=== PATIENT | female | born 1995 ===

== ENCOUNTER 2023-08-07 07:20 | Inpatient (IN) | payer MEDICAID ==
[~2023-08-07] VITALS: Ht 167.6 cm; Wt 149.1 kg
[2023-08-08] VITALS (18 sets, daily range): BP systolic 78–137; BP diastolic 31–71; PULSE 82–109; TEMP 98.1–98.8
--- NOTE | 2023-08-08 05:48 | NUR ---
Ambulatory to unit for scheduled C/S accompanied by Mother and daughter. Oriented to room and plan of care.
[2023-08-08 06:33] LABS: BASO % 0.4 % (0.0-2.0); EOS % 0.4 % (0.0-4.0); GRAN % 70.7 % (42.2-75.2); HEMOGLOBIN 12.8 g/dl (12.5-16.0); LYMPH # 2.3 K/mm3 (1.2-3.4); LYMPH % 23.2 % (20.0-51.0); MEAN CELL VOLUME 87 fl (80.0-100.0); MEAN CORPUSCULAR HEMOGLOBIN 30 pg (27-31); MEAN CORPUSCULAR HGB CONC 35 g/dl (33.0-37.0); MONO # 0.5 K/mm3 (0.1-0.6); MONO % 5.1 % (1.7-9.3); PLATELET COUNT 215 K/mm3 (130-400); RED BLOOD COUNT 4.22 M/mm3 (4.10-5.30); REDCELL DISTRIBUTION WIDTH-CV 13.3 % (11.5-14.5)
[2023-08-08 06:34] LABS: HEMATOCRIT 36.9 % (37.0-47.0)
[2023-08-08] MEDS ORDERED: ZOLOFT 50MG50 MG PO (06:45)
[2023-08-08] MEDS ORDERED: LEVOXYL0.1 MG PO (06:45)
[2023-08-08] MEDS ORDERED: PRENATAL (06:46)
[2023-08-08 08:48] LABS: TRICYCLIC ANTIDEPRESS URINE NEGATIVE (NEGATIVE)
--- NOTE | 2023-08-08 16:45 | NUR ---
Pt up to the bathroom with standby assist and without complications. Eden removed. Eva-care done. Pt ambulated back to the bed without complications. Abdominal binder placed. Plan of care reviewed. Call light within reach.
[2023-08-08] MEDS ORDERED: PERCOCET 325 MG1 TA2 PO (21:34)
[2023-08-08] MEDS ORDERED: MOTRIN 800800 MG/TAB PO (21:34)
[2023-08-09 00:30] VITALS: BP 132/56; PULSE 77; TEMP 97.9
[2023-08-09 08:30] VITALS: BP 129/59; PULSE 88; TEMP 97.9
--- NOTE | 2023-08-09 09:21 | NUR ---
Initial visit; Patient thanked Bulk Folder for offering congratulations and God's blessings for the of her son. Bulk Folder thanked Shonna for choosing [facility] and wished her well.
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
[2023-08-09 17:15] VITALS: BP 117/51; PULSE 76; TEMP 97.9
[2023-08-09 20:00] VITALS: BP 148/73; PULSE 76; TEMP 98.1
--- NOTE | 2023-08-09 21:20 | NUR ---
2022 PT UP TO SHOWER. THIS RN TO ROOM AROUND 2100 TO ASSESS PT'S INCISION. DRESS APPEARED SATURATED AND MOIST. AQUASEAL DRESSING PULLED BACK AND REMOVED BY THIS RN. ABDOMINAL INCISION APPEARED SLIGHTLY MOIST, BUT INTACT. INCISION DABBED WITH GAUZE TO DRY SITE. MORE CLEAN GAUZE PLACED OVER INCISION. PT HELD UP PANIS DURING GAUZE PLACEMENT. EDUCATED PROVIDED TO PT ABOUT KEEPING INCISION DRY AND INFECTION PREVENTION. CLEAN, DRY GAUZE REMAIN OVER INCISION AND PT THEN PLACED PANIS BACK DOWN. ABDOMINAL BINDER PLACED ON PT BY THIS RN WITH ASSISTANCE FROM [address]ND RN[address] DR. CHILDERS NOTIFIED THAT AQUASEAL DRESSING WAS REMOVED BY THIS RN AND THAT THE DRESSING WAS SATURATED. DR. CHILDERS GAVE THE FOLLOWING VERBAL PHONE READBACK ORDERS: 1. PLACE GAUZE OVER INCISION SITE. AQUALSEAL DRESSING DOES NOT NEED TO BE REPLACED AT THIS TIME. CLEAN GAUZE REMAIN IN PLACE WITH BINDER ON.
--- NOTE | 2023-08-10 01:45 | NUR ---
THIS RN TO RE-ASSESS INCISION SITE. MODERATE SPOT OF RED BLOOD NOTED TO ABDOMINAL BINDER. PT LIFTED ABDOMINAL PANIS. THE GAUZE OVER THE INCISION SITE WERE MODERATELY SATURATED WITH BLOOD. BLOODY GAUZE REMOVED AND INCISION SITE ASSESSED. INICISON APPEARS INTACT AND DOES NOT APPEAR TO BE ACTIVELY BLEEDING. NO SWELLING OR DRAINAGE NOTED. NEW GAUZE RE-APPLIED TO SITE. ABDOMINAL BINDER REMAINS ON AT THIS TIME.
--- NOTE | 2023-08-10 04:40 | NUR ---
DR. CHILDERS NOTIFIED OF PATIENT'S MODERATELY BLOODY GAUZE OVER C/S INCISION. INCISION REMAINS C/D/I. NO OPENINGS OR DRAINAGE NOTED. GAUZE AT 0400, WERE MILDLY SATURATED TOWARDS THE MIDDLE OF THE INCISION. DR. CHILDERS GAVE A VERBAL PHONE READBACK ORDER TO CONTINUE TO RE-DRESS THE INCISION WITH DRY GAUZE AT THIS TIME AND TO HAVE DR. DOAN ASSESS THE INCISION SITE TODAY. CLEAN, DRY GAUZE RE-APPLIED TO SITE AT 0430 AND NEW BINDER APPLIED TO PATIENT.
--- NOTE | 2023-08-10 06:25 | NUR ---
PT RESTING IN BED, C/O BURNING AROUND INCISION SITE AFTER TOWEL REMOVE EARLIER. PT ASSISTS IN LIFTING PANNUS, BOTTOM OF BINDER WITH BLOODY DRAINAGE, AND GAUZE OVER INCISION SATURATED WITH BLOOD-TINGED FLUID. INCISION IS INTACT WITIH EDGES WELL APPROXIMATED. NO ACTIVE DRAINAGE NOTED. NEW GAUZE PLACED WITH TOWEL OVERTOP AND BINDER REPOSITIONED IS PER PT'S REQUEST NOT TO CHANGE AT THIS TIME.
[2023-08-10 08:33] VITALS: BP 117/64; PULSE 83; TEMP 98.3
--- NOTE | 2023-08-10 12:00 | NUR ---
TOWEL OVER INCISION CAUSING DISCOMFORT D/T POSITIONING AND HAS BLOODY DRAINAGE, REMOVED. CLEAN TOWEL PLACED OVER INCISION AND BINDER REPOSITIONED. PT REPORTS FEELING MORE COMFORTABLE NOW.
[2023-08-10 16:08] VITALS: BP 129/65; PULSE 73; TEMP 98.1
--- NOTE | 2023-08-10 17:30 | NUR ---
TOWEL OVER INCISION REMOVED AND REPLACED. SMALL LEMON SIZE SPOT OF BLOOD-TINGED FLUID ON PREVIOUS TOWEL.
[2023-08-10 20:00] VITALS: BP 122/68; PULSE 88; TEMP 99.4
[2023-08-10 23:25] VITALS: TEMP 98.7
[2023-08-11 06:45] VITALS: BP 143/74; PULSE 87; TEMP 98.8
--- NOTE | 2023-08-11 07:49 | NUR ---
TOWEL ON THE INCISION REMOVED AND REPLACED WITH NEW TOWEL.GOLF BALL SIZED SPOT OF BLOOD TINGED FLUID ON TOWEL.
--- NOTE | 2023-08-11 15:31 | NUR ---
THIS RN ENTERS THE PT ROOM TO ASSESS AND MOM.UPON ENTERING,MOTHER IS SLEEPING WITH IN THE BED WITH INFANTS FACE TOWARDS MOTHERS ARMPIT.INFANT REMOVED FROM MOTHERS ARMS BY THIS RN AND PLACED INTO CRIB BESIDE THE BED.MOTHER EDUCATED ON SAFE SLEEPING PRACTICES WITH .PT VERBALIZES UNDERSTANDING OF EDUCATION.
[2023-08-11 16:00] VITALS: BP 136/72; PULSE 84; TEMP 98.4
--- NOTE | 2023-08-11 17:53 | NUR ---
PT PULLS UP ALL FOUR SIDE RAILS OF THE BED WHILE LAYING IN BED.THIS RN ADVISES PT THAT THE TWO RAILS LATERAL OF THE PT ARE CONSIDERED RESTRAINTS.PT VERBALIZES UNDERSTANDING.THE TWO LATERAL RAILS ON THE SIDE OF THE BED ARE PLACED DOWN.
--- NOTE | 2023-08-11 19:50 | NUR ---
1950 DISMISS INSTRUCTIONS GIVEN. NO QUESTIONS AT THIS TIME. DISMISSED TO HOME ACC BY BABY AND FAMILY MEMEBER.
== END 2023-08-11 19:50 | disposition home or self-care (01) | DRG 788 ==
LOC: OB 08-08 05:37
PROVIDERS: ADMIT Obstetrics & Gynecology
PROC: 10D00Z1 Extraction of Products of Conception, Low, Open Approach (ICD-10-PCS; principal; 2023-08-08)
DX: O34.211 Maternal care for low transverse scar from previous cesarean delivery (principal); Z3A.39 39 weeks gestation of pregnancy; Z37.0 Single live birth; O99.344 Other mental disorders complicating childbirth; F41.9 Anxiety disorder, unspecified; F32.A Depression, unspecified; F43.10 Post-traumatic stress disorder, unspecified; F41.0 Panic disorder [episodic paroxysmal anxiety]; O99.02 Anemia complicating childbirth; D64.9 Anemia, unspecified; O99.284 Endocrine, nutritional and metabolic diseases complicating childbirth; E03.9 Hypothyroidism, unspecified; O99.214 Obesity complicating childbirth; K21.9 Gastro-esophageal reflux disease without esophagitis; O99.62 Diseases of the digestive system complicating childbirth; Z79.890 Hormone replacement therapy; Z90.49 Acquired absence of other specified parts of digestive tract; Z23 Encounter for immunization
CPT/HCPCS: J0665; J0690; J1885; J2371; J2405; J2590; J2765; J7120